=== PATIENT | male | born 1970 | race Caucasian/White ===

== ENCOUNTER 2024-01-10 09:08 | Emergency (ER) | payer OTHER, SELFPAY ==
[2024-01-10 09:09] VITALS: BP 133/87; PULSE 80; RESP 20; TEMP 36.7; O2SAT 98; BMI 30.3
[2024-01-10] MEDS: Ketorolac Tromethamine 30 MG/ML VIAL IM (09:46)
[2024-01-10] MEDS: Lidocaine 4 % Patch ADH..PATCH 1 PATCH TRANSDERMA (09:47)
--- NOTE | 2024-01-10 09:58 | ED.BACK ---
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 Pain is worse with movement and better at rest. Denies radiation of pain. Denies urinary/bowel incontinence/retention, weakness, saddle paresthesias, fevers, chills, nausea, vomiting, abdominal pain, headache, vision changes, dizziness and weakness. Patient ambulating to room with slow steady gait. Related Data Previous Rx's ?Medication ?Instructions ?Recorded ketorolac 10 mg tablet 10 mg PO TID PRN pain 5 days #15 01/10/24 tabs lidocaine 5 % topical patch 1 patch topical DAILY PRN pain #15 01/10/24 ea Allergies Allergy/AdvReac Type Severity Reaction Status Date / Time No Known Allergies Allergy Verified 01/10/24 09:12 Review of Systems Review of Systems: Constitutional : No Weight loss, No Fever, No Chills, ENT/Mouth : No Hearing loss, No Ear Pain, No Nasal Congestion, No Sinus Pain, No Hoarseness, No sore throat, No Rhinorrhea, No Swallowing Difficulty Cardiovascular : No Chest Pain, No SOB Respiratory : No Cough, No Dyspnea Gastrointestinal : No Nausea, No Vomiting, No Diarrhea, No abdominal Pain, No Hematochezia, No Melena Genitourinary : No Dysuria, No Urinary Frequency, No Hematuria, No Urinary Incontinence, Musculoskeletal : positive back pain Skin : No Skin Lesions, No rash Neuro : No Weakness, No Numbness, No Paresthesias, no loss of bowel or bladder incontinence, no saddle anesthesia Yes all other systems are reviewed and are negative [facility] Past Medical History Attestation statement: The following information was validated with the patient. Source: old records reviewed and nursing notes reviewed Social History Social History Smoked in Last 30 Days: No Use of substances other than those prescribed or required for medical reasons: No Advance Directives: No Advance Directives Information Provided: No Physical Exam Vital Signs: Vital Signs: Last Vital Signs Temp 98.0 F 01/10/24 09:09 Pulse 80 01/10/24 09:09 Resp 20 01/10/24 09:09 BP 133/87 01/10/24 09:09 Pulse Ox 98 01/10/24 09:09 O2 Del Method Room Air 01/10/24 09:09 BMI result Body Mass Index 30.3 vss Appearance: Alert.? Oriented X3.? No acute distress.? Head: Normocephalic, atraumatic, no step-offs or deformities Eyes: Pupils equal, round and reactive to light.? Neck: Normal inspection.? Neck supple.? CVS: Normal heart rate and rhythm.? Pulses normal.? Respiratory: No respiratory distress.? Breath sounds normal.? Abdomen: Soft and nontender.? Skin: Skin warm and dry.? Normal skin color.? Normal skin turgor.? Extremities: No lower extremity edema.? No calf ttp. 5/5 strength to bilateral upper and lower extremities Back: No midline tenderness. Left-sided lumbar paraspinous muscle spasms throughout. /tenderness with palpation. No saddle paresthesias. Ambulating with steady gait normal coordination. Neuro: Oriented X 3.? No motor deficit.? No sensory deficit. CN 2-12 intact Course Reevaluation(s) Reevaluation #1: Patient feeling better ambulating without difficulty. Educated patient on diagnosis and treatment plan, answered all question, patient verbalizes understanding. At this time patient will be discharged home, advised to return with new or worsening symptoms. Educated on worrisome signs and symptoms and when to return. At this time I feel comfortable discharge home. Time: 10:58 Medications Administered Discontinued Medications Generic Name Dose Route Start Last Admin Trade Name Freq PRN Reason Stop Dose Admin Ketorolac Tromethamine 30 mg 01/10/24 09:23 01/10/24 09:46 Ketorolac Tromethamine 30 Mg/Ml Vial IM 01/10/24 09:24 30 mg ONCE ONE Administration Lidocaine 1 patch 01/10/24 09:23 01/10/24 09:47 Lidocaine 4 % Patch Adh..Patch TRANSDERMA 01/10/24 09:24 1 patch ONCE ONE Administration Protocol Medical Decision Making Medical Decision Making [facility] Narrative: 1007 53-year-old male presenting to the emergency department with complaints of 2 days of left-sided lower back pain without radiation. Pain is worse with movement better at rest. Physical exam left-sided lumbar paraspinous tenderness to palpation. History and physical exam concerning for lumbar paraspinous muscle spasm versus sprain/strain versus lumbago versus lumbar radiculopathy. Unlikely cord compression, cauda equina, epidural abscess.s Plan at this time will medicate and re-evaluate. Differential Diagnosis Differential Diagnoses: The differential diagnosis associated with the presentation includes History and physical exam concerning for lumbar paraspinous muscle spasm versus sprain/strain versus lumbago versus lumbar radiculopathy. Unlikely cord compression, cauda equina, epidural abscess.s Admission/Observation Consideration of admission/observation: Escalation of care including admission/observation considered Unlikley Tests considered The following testing was considered but not selected: Atraumatic no red flag symptoms. No indication for imaging. Prescription Management I considered prescription management with: Pain Medication Critical Care Time Critical Care Time Critical Care Time: No Discharge Plan Discharge Clinical Impression: Acute lumbar back pain Patient Disposition: Home, Self-Care Instructions: Acute Low Back Pain (ED) Additional Instructions: Take your medications as prescribed. If you were prescribed antibiotics today, it is important that you take your medication to their entirety, do not skip any doses, do not finish them early. Follow-up with your primary care provider this week. Return to the emergency department with new or worsening symptoms. Such as fevers, chills, chest pain, shortness of breath, nausea, vomiting, dizziness, headache, vision changes, lethargy In case of emergency call 911 Toradol has been sent to your pharmacy, you tolerated this well in the department. Please take this as prescribed do not take this with ibuprofen, or other NSAIDs, do not mix this with alcohol. Side effects of this medication including increased risk for bleeding and possible kidney injury. Prescriptions: New ketorolac 10 mg tablet 10 mg PO TID PRN (Reason: pain) 5 Days Qty: 15 0RF lidocaine 5 % adhesive patch,medicated 1 patch topical DAILY PRN (Reason: pain) Qty: 15 0RF Rx Instructions: leave on most painful area for up to 12 hrs Referrals: Physician,Unknown J [Primary Care Provider] - 2 days Print Language: Japanese
[2024-01-10 11:00] VITALS: BP 117/72; PULSE 80; RESP 18; O2SAT 98
[2024-01-10 11:01] VITALS: BP 117/72; PULSE 80; RESP 18; TEMP 36.6; O2SAT 98
== END 2024-01-10 11:01 | disposition home or self-care (01) ==
PROVIDERS: Emergency Provider Student in an Organized Health Care Education/Training Program
DX: M54.50 Low back pain, unspecified (principal); I10 Essential (primary) hypertension
CPT/HCPCS: 96372; 99284; J1885